=== PATIENT | female | born 1975 | race Caucasian/White ===

== ENCOUNTER 2020-04-20 21:57 | Emergency (ER) | payer SELFPAY ==
[~2020-04-20] VITALS: Ht 149.9 cm; Wt 49.9 kg
--- NOTE | 2020-04-20 22:20 | NUR ---
TO TENT # 01 AMBULATORY
--- NOTE | 2020-04-20 22:22 | NUR ---
SWAB DONE AND SENT TO LAB
[2020-04-20 22:30] VITALS: BP 137/71
[2020-04-20] MEDS ORDERED: traMADol 50 MG TAB PO ONE (23:40)
--- NOTE | 2020-04-21 00:10 | NUR ---
MEDICATED PER [facility] ORDER , TOLERATED WELL.
[2020-04-21 01:52] LABS: FREE T4 (FREE THYROXINE) 0.87 ng/dL (0.76-1.46); THYROID STIMULATING HORMONE 3.4 uIU/mL (0.34-3.74)
--- NOTE | 2020-04-21 02:00 | NUR ---
ALL RESULTS BACK AND NOTED BY [facility] AND FOR D/C
[2020-04-21 02:15] VITALS: BP 121/79
== END 2020-04-21 02:15 | disposition home or self-care (01) ==
LOC: MED 21:57
DX: B34.9 Viral infection, unspecified (principal); R03.0 Elevated blood-pressure reading, without diagnosis of hypertension; J45.909 Unspecified asthma, uncomplicated; Z88.0 Allergy status to penicillin; Z20.828 Contact with and (suspected) exposure to other viral communicable diseases
CPT/HCPCS: 36415; 71045; 84439; 84443; 99283; 99284

== ENCOUNTER 2021-06-30 12:38 | Emergency (ER) | payer SELFPAY ==
[~2021-06-30] VITALS: Ht 149.9 cm; Wt 49.0 kg
[2021-06-30 12:50] VITALS: BP 123/88
[2021-06-30 13:29] VITALS: BP 123/88
[2021-07-02 09:06] LABS: HEPATITIS B SURFACE ANTIGEN Negative (Negative)
== END 2021-06-30 13:29 | disposition home or self-care (01) ==
LOC: MED 12:38
DX: J45.909 Unspecified asthma, uncomplicated (principal); Z11.3 Encounter for screening for infections with a predominantly sexual mode of transmission; Z88.0 Allergy status to penicillin
CPT/HCPCS: 36415; 86592; 86803; 87340; 87491; 87529; 99283